=== PATIENT | male | born 1985 | race Two or more races ===

== ENCOUNTER 2016-12-17 17:38 | Emergency (ER) | payer MEDICAID, OTHER ==
[~2016-12-17] VITALS: Ht 165.1 cm; Wt 90.7 kg
[2016-12-17 18:48] VITALS: BP 142/99
[2016-12-17] MEDS ORDERED: HYDROcodone-ACET 5/325MG TAB PO ONE (19:30)
== END 2016-12-17 20:18 | disposition home or self-care (01) ==
LOC: ER 17:40
DX: L03.114 Cellulitis of left upper limb (principal)
CPT/HCPCS: 73200

== ENCOUNTER 2017-10-11 22:43 | Emergency (ER) | payer MEDICAID ==
[~2017-10-11] VITALS: Ht 165.1 cm; Wt 99.8 kg
[2017-10-11 23:08] VITALS: BP 127/76
== END 2017-10-12 02:32 | disposition left against medical advice (07) ==
LOC: ER 22:43
DX: S10.15XA Superficial foreign body of throat, initial encounter (principal); Z53.21 Procedure and treatment not carried out due to patient leaving prior to being seen by health care provider; X58.XXXA Exposure to other specified factors, initial encounter; Y93.89 Activity, other specified; Y99.8 Other external cause status; Y92.89 Other specified places as the place of occurrence of the external cause
CPT/HCPCS: 70360; 70490